=== PATIENT | female | born 1940 | race Caucasian/White ===

== ENCOUNTER 2025-01-11 18:21 | Emergency (ER) | payer MEDICARE, OTHER ==
[2025-01-11 20:37] LABS: Glucose, Urine (Dipstick) >=1000 mg/dL (Negative); Leukocyte Trace (Negative); Protein, Urine (Dipstick) 100 mg/dL (Neg-Trace); Specific Gravity, Urine 1.015 (1.005-1.030)
[2025-01-11 20:43] LABS: Bacteria/HPF 3+ HPF (None Seen); CAUTI Indications for Culture Dysuria,urgency,freq; RBC/HPF 0-3 HPF (0-3); WBC/HPF Greater Than 50 HPF (0-3)
[2025-01-11 20:44] LABS: Urine Culture Reflex Yes Yes
== END 2025-01-11 21:24 | disposition home or self-care (01) ==
LOC: BURERS 18:21
DX: S70.01XA Contusion of right hip, initial encounter (principal); N39.0 Urinary tract infection, site not specified; E11.65 Type 2 diabetes mellitus with hyperglycemia; I10 Essential (primary) hypertension; W06.XXXA Fall from bed, initial encounter
CPT/HCPCS: 36416; 72170; 81001; 87077; 87086; 87186; 96372; 99283; J0692; J1815; J1885

== ENCOUNTER 2025-02-20 15:27 | Outpatient (CLI) | payer MEDICARE, OTHER | END 2025-02-20 15:28 | disposition home or self-care (01) | LOC: BUREKG 15:27 | PROVIDERS: ATTEND Family Medicine | DX: I49.9 Cardiac arrhythmia, unspecified (principal) | CPT/HCPCS: 93005; 93010 ==